=== PATIENT | female | born 1950 | race American Indian/Alaskan Native ===

== ENCOUNTER 2016-08-07 08:21 | Outpatient (CLI) | payer MEDICARE ==
--- NOTE | 2016-08-07 09:56 | Mammography Report ---
BILATERAL DIGITAL SCREENING MAMMOGRAM with CAD: 08/07/16 08:21:00 CLINICAL: Routine screening.The patient has had a left-sided stroke. Difficulty in positioning of the left breast is partially due to a somewhat uncooperative patient. COMPARISON:08/07/15 FINDINGS: The upper left breast is not included on the MLO view. There are scattered areas of fibroglandular density. No mass, architectural distortion or suspicious calcifications. IMPRESSION: No mammographic evidence of malignancy. Limitations of the mammogram for reasons cited above. BI-RADS CATEGORY: 1 - - Negative RECOMMENDATION: Routine mammographic screening in one year. COMMENT: Patient follow-up letters are generated by our [employer] application.
== END 2016-08-07 08:22 | disposition home or self-care (01) ==
LOC: SPVWC 08:21
PROVIDERS: ATTEND Nurse Practitioner Women's Health
DX: Z12.31 Encounter for screening mammogram for malignant neoplasm of breast (principal)
CPT/HCPCS: 77067; G0202

== ENCOUNTER 2017-08-10 08:34 | Outpatient (CLI) | payer MEDICARE ==
--- NOTE | 2017-08-11 10:40 | Mammography Report ---
BILATERAL DIGITAL SCREENING MAMMOGRAM with CAD: 08/10/17 08:34:00 CLINICAL: Routine screening. COMPARISON: 08/07/16 FINDINGS: Suboptimal positioning on the MLO view is related to a left body stroke with limited range of motion in the left upper extremity. There are bilateral scattered areas of fibroglandular density.No mass, architectural distortion or suspicious calcifications. IMPRESSION: No mammographic evidence of malignancy. BI-RADS CATEGORY: 1 -- Negative RECOMMENDATION: Routine mammographic screening in one year. COMMENT: Patient follow-up letters are generated by our [employer] application.
== END 2017-08-10 08:35 | disposition home or self-care (01) ==
LOC: SPVWC 08:34
PROVIDERS: ATTEND Nurse Practitioner Women's Health
DX: Z12.31 Encounter for screening mammogram for malignant neoplasm of breast (principal)
CPT/HCPCS: 77067

== ENCOUNTER 2018-08-12 10:25 | Outpatient (CLI) | payer MEDICARE ==
--- NOTE | 2018-08-12 16:15 | Mammography Report ---
BILATERAL DIGITAL SCREENING MAMMOGRAM with CAD: 08/12/18 10:25:00 CLINICAL: Routine screening. COMPARISON: 08/10/17 FINDINGS: There are bilateral scattered areas of fibroglandular density.No mass, architectural distortion or suspicious calcifications. IMPRESSION: No mammographic evidence of malignancy. BI-RADS CATEGORY: 1 -- Negative RECOMMENDATION: Routine mammographic screening in one year. COMMENT: Patient follow-up letters are generated by our [employer] application.
== END 2018-08-12 10:26 | disposition home or self-care (01) ==
LOC: SPVWC 10:25
PROVIDERS: ATTEND Nurse Practitioner Women's Health
DX: Z12.31 Encounter for screening mammogram for malignant neoplasm of breast (principal); I10 Essential (primary) hypertension; E78.00 Pure hypercholesterolemia, unspecified; E03.9 Hypothyroidism, unspecified; Z90.710 Acquired absence of both cervix and uterus
CPT/HCPCS: 77067

== ENCOUNTER 2018-08-19 18:49 | Emergency (ER) | payer MEDICARE ==
[2018-08-19] MEDS ORDERED: MORPHINE IV ONE (19:32)
[2018-08-19] MEDS ORDERED: NACL 0.9% 1000 ML 1,000 ML IV ONE (19:32)
[2018-08-19] MEDS ORDERED: ZOFRAN IV ONE (19:32)
[2018-08-19 20:23] LABS: Basophils % (Auto) 0.4 % (0.0-1.8); Eosinophils % (Auto) 0.6 % (0.0-4.3); Hematocrit 38.9 % (30.3-42.9); Hemoglobin 13.1 gm/dl (10.1-14.3); Lymphocytes % (Auto) 20.5 % (13.4-35.0); Mean Corpuscular HGB Conc 34 % (30-34); Mean Corpuscular Volume 87 fl (79-97); Monocytes # (Auto) 0.4 K/mm3 (0.0-0.8); Monocytes % (Auto) 8.9 % (0.0-7.3); Platelet Count 196 K/mm3 (140-440); Red Blood Count 4.47 M/mm3 (3.65-5.03); Red Cell Distribution Width 15.5 % (13.2-15.2)
[2018-08-19 20:41] LABS: Calcium 9.6 mg/dL (8.4-10.2)
[2018-08-19] MEDS ORDERED: NACL 0.9% 500 ML 500 ML IV ONE (21:05)
[2018-08-19 21:18] LABS: Bacteria,Urine 1+ /HPF (Negative); Bilirubin,Urine NEG (Negative); Blood,Urine NEG (Negative); Color,Urine Yellow (Yellow); Mucus,Urine FEW /HPF; Urobilinogen,Urine < 2.0 mg/dL (<2.0)
--- NOTE | 2018-08-19 22:42 | Cat Scan Report ---
PROCEDURE: CT HEAD/BRAIN WO CON TECHNIQUE: Spiral CT imaging of the brain was obtained without the use of IV contrast. HISTORY: headache with elevated BP COMPARISONS: Prior CT scan of the brain September 21, 2017 FINDINGS: Brain: There is a parenchymal hemorrhage visualized in the right temporal parietal region. This is be st visualized on image 24 series 2. This hemorrhage measures approximately 3.2 x 1.8 cm. There is mil d surrounding edema and mild localized mass effect. There is no midline shift. Moderate sized old area of encephalomalacia is visualized involving the posterior inferior lateral as pect right frontal lobe. This is unchanged from the prior study. Old lacunar infarcts seen in lateral aspect right and left basal ganglia. There is some decreased density seen in the periventricular white matter without mass effect. This i s fairly symmetric and does not exhibit any mass effect consistent with gliosis probably on the basis of microvascular disease or white matter changes of aging. Ventricles: The ventricles are normal size and are midline. Sulcal pattern and fissures mildly promi nent consistent with mild atrophy.. Bone Windows: No evidence of fracture. Paranasal sinuses: Visualized portions are clear. Mastoid air cells: Visualized portions are clear. IMPRESSION: Parenchymal hemorrhage right temporal parietal region as described above. There is only mild localize d mass effect. Is evidence of mild atrophy and gliosis. Old lacunar infarct seen in right and left basal ganglia. Moderate size old area of encephalomalacia posterior inferior lateral aspect right frontal lobe. Critical value: A wet reading was given to Dr. Overton on 08/19/2018 at 10:40 PM Eastern standard time. This document is electronically signed by Azeem Griffith MD., Aug 19 2018 10:40:32 PM ET
--- NOTE | 2018-08-19 22:53 | Emergency Department Report ---
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 Patient's also has has a history of hypertension and diabetes. Patient states that last night at approximately 2 AM she had a hypoglycemic episode. Patient states she felt some mild confusion and diaphoresis. Patient had taken slightly more insulin than she should have and did not eat well. Patient blood sugar dropped into the 50s. She was able to eat and drink and brought her sugar back up into the 100s. Patient states this morning she developed some headache that was global. She denies any nausea vomiting and light sensitivity. Patient states that when standing and when straining have a bowel movement her head with her worse. She does not have a history of headaches. Patient states the headache as a throbbing sensation is 6 out of 10 in severity at its worst. Allergies/Adverse Reactions: Allergies atorvastatin calcium [From Lipitor] Allergy (Verified 04/17/14 20:45) Unknown Home Medications: Ambulatory Orders Insulin Detemir [Levemir Flexpen] 15 unit SQ QHS 08/07/13 Baclofen 10 mg PO TID 01/15/14 Insulin Aspart Protam & Aspart [NovoLOG Mix 70-30 Flexpen] 15 units SUB-Q QHS 01/15/14 Olmesartan (Nf) [Benicar] 40 mg PO DAILY 01/15/14 Gabapentin [Neurontin] 100 mg PO Q8HR 05/25/17 Hydralazine HCl 100 mg PO BID 05/25/17 Venlafaxine HCl [Venlafaxine HCl ER] 150 mg PO DAILY 05/25/17 Aspirin [Lo-Dose Aspirin EC] 81 mg PO DAILY #30 tablet. 06/02/17 Clopidogrel [Plavix] 75 mg PO QDAY #60 tablet 06/02/17 Levothyroxine [Synthroid] 0.05 mg PO DAILY #30 06/02/17 Loratadine [Claritin] 10 mg PO DAILY #30 06/02/17 Calcium Carbonate/Vitamin D3 [Calcium 600-Vit D3 800 Caplet] 2 tab PO DAILY 08/19/18 Carvedilol [Coreg] 25 mg PO BID 08/19/[address] (Nf) [Dexilant (Nf)] 60 mg PO QAM 08/19/18 Simvastatin [Zocor] 40 mg PO DAILY 08/19/18 amLODIPine [Norvasc] 10 mg PO DAILY 08/19/18 levETIRAcetam [Keppra TAB] 2,000 mg PO BID 08/19/18 ED Review of Systems ROS: Stated complaint: HEADACHE Other details as noted in HPI Comment: All other systems reviewed and negative ED Past Medical Hx - Past Medical History Previous Medical History?: Yes Hx Hypertension: Yes Hx CVA: Yes (L sided hemiparesis) Hx Heart Attack/AMI: No Hx Congestive Heart Failure: No Hx Diabetes: Yes Hx Deep Vein Thrombosis: No Hx Pulmonary Embolism: No Hx Liver Disease: No Hx Renal Disease: No Hx Sickle Cell Disease: No Hx Arthritis: Yes Hx Seizures: Yes (Keppra) Hx Kidney Stones: Yes Hx Asthma: No Hx COPD: No Hx Tuberculosis: No Hx Dementia: No Hx HIV: No Additional medical history: High cholesterol - Surgical History Hx Coronary Stent: No Hx Open Heart Surgery: No Hx Pacemaker: No Hx Internal Defibrillator: No Hx Cholecystectomy: No Hx Appendectomy: No Hx Breast Surgery: No Additional Surgical History: "neck surgery, L rotator cuff and Hysterectomy - Social History Smoking Status: Never Smoker Substance Use Type: None - Medications Home Medications: Home Medications Medication Instructions Recorded Confirmed Last Taken Type Insulin Detemir [Levemir Flexpen] 15 unit SQ QHS 08/07/13 08/19/18 06/15/15 History Baclofen 10 mg PO TID 01/15/14 08/19/18 06/16/15 History Insulin Aspart Protam & Aspart 15 units SUB-Q QHS 01/15/14 08/19/18 06/15/15 History [NovoLOG Mix 70-30 Flexpen] Olmesartan (Nf) [Benicar] 40 mg PO DAILY 01/15/14 08/19/18 06/16/15 History Gabapentin [Neurontin] 100 mg PO Q8HR 05/25/17 08/19/18 Unknown History Hydralazine HCl 100 mg PO BID 05/25/17 08/19/18 Unknown History Venlafaxine HCl [Venlafaxine HCl 150 mg PO DAILY 05/25/17 08/19/18 Unknown History ER] Aspirin [Lo-Dose Aspirin EC] 81 mg PO DAILY #30 tablet. 06/02/17 08/19/18 Unknown Rx Clopidogrel [Plavix] 75 mg PO QDAY #60 tablet 06/02/17 08/19/18 Unknown Rx Levothyroxine [Synthroid] 0.05 mg PO DAILY #30 06/02/17 08/19/18 05/23/17 07:00 Rx Loratadine [Claritin] 10 mg PO DAILY #30 06/02/17 08/19/18 06/16/15 Rx Calcium Carbonate/Vitamin D3 2 tab PO DAILY 08/19/18 08/19/18 Unknown History [Calcium 600-Vit D3 800 Caplet] Carvedilol [Coreg] 25 mg PO BID 08/19/18 08/19/18 Unknown History Dexlansoprazole ([place]) [Dexilant 60 mg PO QAM 08/19/18 08/19/18 Unknown History ([place])] Simvastatin [Zocor] 40 mg PO DAILY 08/19/18 08/19/18 Unknown History amLODIPine [Norvasc] 10 mg PO DAILY 08/19/18 08/19/18 Unknown History levETIRAcetam [Keppra TAB] 2,000 mg PO BID 08/19/18 08/19/18 Unknown History ED Physical Exam - General Limitations: No Limitations General appearance: alert, in no apparent distress - Head Head exam: Present: atraumatic, normocephalic - Eye Eye exam: Present: normal appearance - ENT ENT exam: Present: mucous membranes moist - Neck Neck exam: Present: normal inspection - Respiratory Respiratory exam: Present: normal lung sounds bilaterally. Absent: respiratory distress, wheezes, rales, rhonchi - Cardiovascular Cardiovascular Exam: Present: regular rate, normal rhythm. Absent: systolic murmur, diastolic murmur, rubs, gallop - GI/Abdominal GI/Abdominal exam: Present: soft, normal bowel sounds. Absent: distended, tenderness, guarding, rebound - Extremities Exam Extremities exam: Present: normal inspection - Back Exam Back exam: Present: normal inspection - Neurological Exam Neurological exam: Present: alert, oriented X3, CN II-XII intact, motor sensory deficit (patient with chronic left upper extremity and left lower extremity weakness.). Absent: altered - Psychiatric Psychiatric exam: Present: normal affect, normal mood - Skin Skin exam: Present: warm, dry, intact, normal color. Absent: rash ED Course Vital Signs 08/19/18 08/19/18 08/19/18 19:25 20:00 21:00 Temperature 98.2 F Pulse Rate 85 87 93 H Respiratory 14 20 26 H Rate Blood Pressure 165/79 176/80 173/86 Blood Pressure 165/79 [Right] O2 Sat by Pulse 95 93 94 Oximetry 08/19/18 08/19/18 08/19/18 22:08 22:30 23:04 Temperature 98.3 F Pulse Rate 91 H 88 88 Respiratory 19 16 24 Rate Blood Pressure 173/86 147/86 Blood Pressure 164/89 [Right] O2 Sat by Pulse 90 89 94 Oximetry ED Medical Decision Making - Lab Data Result diagrams: 08/19/18 20:14 08/19/18 20:14 Lab Results 08/19/18 08/19/18 08/19/18 Range/Units 20:14 20:14 20:53 WBC 4.9 (4.5-11.0) K/mm3 RBC 4.47 (3.65-5.03) M/mm3 Hgb 13.1 (10.1-14.3) gm/dl Hct 38.9 (30.3-42.9) % MCV 87 (79-97) fl MCH 29 (28-32) pg MCHC 34 (30-34) % RDW 15.5 H (13.2-15.2) % Plt Count 196 (140-440) K/mm3 Lymph % (Auto) 20.5 (13.4-35.0) % [place] % (Auto) 8.9 H (0.0-7.3) % Eos % (Auto) 0.6 (0.0-4.3) % Baso % (Auto) 0.4 (0.0-1.8) % Lymph # 1.0 L (1.2-5.4) K/mm3 [place] # 0.4 (0.0-0.8) K/mm3 Eos # 0.0 (0.0-0.4) K/mm3 Baso # 0.0 (0.0-0.1) K/mm3 Seg Neutrophils % 69.6 (40.0-70.0) % Seg Neutrophils # 3.4 (1.8-7.7) K/mm3 Sodium 140 (137-145) mmol/L Potassium 4.2 (3.6-5.0) mmol/L Chloride 99.6 (98-107) mmol/L Carbon Dioxide 29 (22-30) mmol/L Anion Gap 16 mmol/L BUN 18 H (7-17) mg/dL Creatinine 1.1 (0.7-1.2) mg/dL Estimated GFR 59 ml/min BUN/Creatinine Ratio 16 % Glucose 261 H (65-100) mg/dL Calcium 9.6 (8.4-10.2) mg/dL Urine Color Yellow (Yellow) Urine Turbidity Clear (Clear) Urine pH 6.0 (5.0-7.0) Ur Specific [place] 1.014 (1.003-1.030) Urine Protein 100 mg/dl (Negative) mg/dL Urine Glucose (UA) 50 (Negative) mg/dL Urine Ketones Neg (Negative) mg/dL Urine Blood Neg (Negative) Urine Nitrite Neg (Negative) Urine Bilirubin Neg (Negative) Urine Urobilinogen < 2.0 (<2.0) mg/dL Ur Leukocyte Esterase Neg (Negative) Urine WBC (Auto) 1.0 (0.0-6.0) /HPF Urine RBC (Auto) 3.0 (0.0-6.0) /HPF U Epithel Cells (Auto) 1.0 (0-13.0) /HPF Urine Bacteria (Auto) 1+ (Negative) /HPF Urine Mucus Few /HPF - EKG Data -: EKG Interpreted by Nc - EKG Data 08/19/18 23:12 EKG shows sinus rhythm with a rate of 86. [place] is rightward intervals are normal there is no ST segment elevations or depressions present. - Radiology Data [facility] [address] [place] [address] Cat Scan Report Signed Patient: VINCENT GARRIDO MR# : [id number] : 1950 Acct:[id number] Age/Sex: 68 / F ADM Date: 08/19/18 Loc: ED Attending Dr: Ordering Physician: CHRISTIANO OVERTON MD Date of Service: 08/19/18 Procedure(s): CT head/brain wo con Accession Number(s): [id number] cc: CHRISTIANO OVERTON MD PROCEDURE: CT HEAD/BRAIN WO CON TECHNIQUE: Spiral CT imaging of the brain was obtained without the use of IV contrast. HISTORY: headache with elevated BP COMPARISONS: Prior CT scan of the brain September 21, 2017 FINDINGS: Brain: There is a parenchymal hemorrhage visualized in the right temporal parietal region. This is best visualized on image 24 series 2. This hemorrhage measures approximately 3.2 x 1.8 cm. There is mild surrounding edema and mild localized mass effect. There is no midline shift. Moderate sized old area of encephalomalacia is visualized involving the posterior inferior lateral aspect right frontal lobe. This is unchanged from the prior study. Old lacunar infarcts seen in lateral aspect right and left basal ganglia. There is some decreased density seen in the periventricular white matter without mass effect. This is fairly symmetric and does not exhibit any mass effect consistent with gliosis probably on the basis of microvascular disease or white matter changes of aging. Ventricles: The ventricles are normal size and are midline. Sulcal pattern and fissures mildly prominent consistent with mild atrophy.. Bone Windows: No evidence of fracture. Paranasal sinuses: Visualized portions are clear. Mastoid air cells: Visualized portions are clear. IMPRESSION: Parenchymal hemorrhage right temporal parietal region as described above. There is only mild localized mass effect. Is evidence of mild atrophy and gliosis. Old lacunar infarct seen in right and left basal ganglia. Moderate size old area of encephalomalacia posterior inferior lateral aspect right frontal lobe. Critical value: A wet reading was given to Dr. Overton on 08/19/2018 at 10:40 PM Eastern standard time. This document is electronically signed by Azeem Ram MD., Aug 19 2018 10:40:32 PM ET Transcribed By: DFN Dictated By: AZEEM RAM MD Electronically Authenticated By: AZEEM RAM MD Signed Date/Time: 08/19/182241 DD/ 13 TD/TT: 08/19/182213 - Medical Decision Making Initially the patient states headache and some mild lightheadedness was worse when she would stand. Our hopes was that the patient has some mild dehydration causing her symptoms. Patient's blood pressure was 160s on arrival and after being treated for headache the blood pressure dropped into the 140s systolic. Unfortunately the patient CT of the head shows the patient has a right temporoparietal hemorrhagic lesion. There is no midline shift. Did consult [facility] for transfer to the neurosurgery care. Spoke with Dr. Coto who is the accepting physician. Patient transferred in stable condition. Critical Care Time: Yes (30) Critical care attestation.: If time is entered above; I have spent that time in minutes in the direct care of this critically ill patient, excluding procedure time. ED Disposition Clinical Impression: Hemorrhagic cerebrovascular accident (CVA) Disposition: DC/TX-70 ANOTHER TYPE HLTHCARE Is pt being admited?: No Does the pt Need Aspirin: No Condition: Stable Referrals: MARIBELL ROGERS MD [Primary Care Provider] - 3-5 Days Exam - Constitutional Vitals: Temp Pulse Resp BP Pulse Ox 98.3 F 88 24 164/89 94 08/19/18 23:04 08/19/18 23:04 08/19/18 23:04 08/19/18 23:04 08/19/18 23:04 - Level of Consciousness 1a. Level of Consciousness: alert/keenly responsive - LOC Questions 1b. LOC Questions: answers both correctly - LOC Command 1c. LOC Commands: performs tasks correctly - Best Gaze 2. Best Gaze: normal - Visual 3. Visual: no visual loss - Facial Palsy 4. Facial Palsy: normal symmetrical movement - Motor Arm 5a. Motor Arm Left: some gravity effort 5b. Motor Arm Right: no drift - Motor Leg 6a. Motor Leg Left: some gravity effort 6b. Motor Leg Right: no drift - Limb Ataxia 7. Limb Ataxia: absent - Sensory 8. Sensory: normal - Best Language 9. Best Language: no aphasia - Dysarthria 10. Dysarthria: normal - Extinction and Inattention 11. Extinction/Inattention: no abnormality - Scoring Total Score: 4 Stroke Severity: Minor Stroke
--- NOTE | 2018-08-19 23:51 | XRay Report ---
PROCEDURE: XR ABDOMEN 1V AP TECHNIQUE: Supine abdomen HISTORY: constipation COMPARISONS: FINDINGS: On the view obtained obtain no evidence for colonic or small bowel distention. No sign of free air on supine view. No calcifications observed. IMPRESSION: Nonobstructive bowel gas pattern This document is electronically signed by Dustin Luciano MD., Aug 19 2018 11:49:12 PM ET
[2018-08-20 00:14] VITALS: BP 154/76
== END 2018-08-20 00:50 | disposition other institution (70) ==
LOC: ED 18:49
DX: I63.9 Cerebral infarction, unspecified (principal); I10 Essential (primary) hypertension; E11.9 Type 2 diabetes mellitus without complications; M19.90 Unspecified osteoarthritis, unspecified site; E78.00 Pure hypercholesterolemia, unspecified
CPT/HCPCS: 36415; 70450; 74018; 80048; 81001; 85025; 93005; 93010; 96361; 96374; 96375; 99291; J2270; J2405; J7030; J7040

== ENCOUNTER 2018-09-12 11:35 | Emergency (ER) | payer MEDICARE ==
[2018-09-12 12:19] LABS: Basophils % (Auto) 0.4 % (0.0-1.8); Eosinophils % (Auto) 0.5 % (0.0-4.3); Hematocrit 39.1 % (30.3-42.9); Hemoglobin 13.1 gm/dl (10.1-14.3); Lymphocytes # (Auto) 0.7 K/mm3 (1.2-5.4); Lymphocytes % (Auto) 18.4 % (13.4-35.0); Mean Corpuscular HGB Conc 34 % (30-34); Mean Corpuscular Volume 88 fl (79-97); Monocytes # (Auto) 0.3 K/mm3 (0.0-0.8); Monocytes % (Auto) 7.6 % (0.0-7.3); Platelet Count 185 K/mm3 (140-440); Red Blood Count 4.43 M/mm3 (3.65-5.03); Red Cell Distribution Width 15.3 % (13.2-15.2)
--- NOTE | 2018-09-12 12:22 | Emergency Department Report ---
ED Neuro Deficit HPI - General Chief Complaint: Neuro Symptoms/Deficit Stated Complaint: NEURO ISSUES Time Seen by Provider: 09/12/18 11:45 Source: patient, family, EMS Mode of arrival: Stretcher Limitations: No Limitations - History of Present Illness Initial Comments: Mrs. Vaughn is a very pleasant 68 yo female with history of hemorrhagic CVA, ischemic CVA, insulin-dependent diabetes, seizure disorder, hypothyroidism, GERD, osteoarthritis, dyslipidemia who presents wtih elevated blood pressure and headache this morning. Pertinent hx: major CVA July 2013 which led to residual persistent deficits including left sided partial paralysis, dysarthia. She had recent stroke May 2017. Most recently earlier this month, she had a small hemorrhagic stroke at the right temporal parietal region. Daughter explains that her residual deficits were only slightly were at this recent neurological insult. She was then transferred to [facility]. Discharged August 23. Her neurologist has been increasing dose and frequency of hydralazine for goal SBP 130 mm HG. This morning Mrs. Neli Sutton woke up around 3:00 2. Depression. She felt dizzy. She was able to ambulate with her [email or web address] Laci without assistance. Daughter checked blood pressure at that time. Systolic blood pressure was 1 56 mmHg. This morning she awakened, she noticed right eye right temporal headache. Mild. The daughter and patient were both concerned because this was the presentation of recent hemorrhagic stroke. Headache is not resolved. She did take her morning medications. She denies any pain at this time. She denies any new weakness or sensory abnormalities. -: Gradual, This morning Place: home Severity: mild Improves With: time Context: gradual onset Associated Symptoms: headaches Treatments Prior to Arrival: other medication (blood pressure medication) - Related Data Home Medications: Home Medications Medication Instructions Recorded Confirmed Last Taken Insulin Detemir [Levemir Flexpen] 15 unit SQ QHS 08/07/13 08/19/18 06/15/15 Baclofen 10 mg PO TID 01/15/14 08/19/18 06/16/15 Insulin Aspart Protam & Aspart 15 units SUB-Q QHS 01/15/14 08/19/18 06/15/15 [NovoLOG Mix 70-30 Flexpen] Olmesartan (Nf) [Benicar] 40 mg PO DAILY 01/15/14 08/19/18 06/16/15 Gabapentin [Neurontin] 100 mg PO Q8HR 05/25/17 08/19/18 Unknown Hydralazine HCl 100 mg PO BID 05/25/17 08/19/18 Unknown Venlafaxine HCl [Venlafaxine HCl 150 mg PO DAILY 05/25/17 08/19/18 Unknown ER] Calcium Carbonate/Vitamin D3 2 tab PO DAILY 08/19/18 08/19/18 Unknown [Calcium 600-Vit D3 800 Caplet] Carvedilol [Coreg] 25 mg PO BID 08/19/18 08/19/18 Unknown Dexlansoprazole (Nf) [Dexilant 60 mg PO QAM 08/19/18 08/19/18 Unknown (Nf)] Simvastatin [Zocor] 40 mg PO DAILY 08/19/18 08/19/18 Unknown amLODIPine [Norvasc] 10 mg PO DAILY 08/19/18 08/19/18 Unknown levETIRAcetam [Keppra TAB] 2,000 mg PO BID 08/19/18 08/19/18 Unknown Previous Rx's Medication Instructions Recorded Last Taken Type Aspirin [Lo-Dose Aspirin EC] 81 mg PO DAILY #30 tablet. 06/02/17 Unknown Rx Clopidogrel [Plavix] 75 mg PO QDAY #60 tablet 06/02/17 Unknown Rx Levothyroxine [Synthroid] 0.05 mg PO DAILY #30 06/02/17 05/23/17 07:00 Rx Loratadine [Claritin] 10 mg PO DAILY #30 06/02/17 06/16/15 Rx Allergies/Adverse Reactions: Allergies Allergy/AdvReac Type Severity Reaction Status Date / Time atorvastatin calcium Allergy Unknown Verified 04/17/14 20:45 [From Lipitor] ED Review of Systems ROS: Stated complaint: NEURO ISSUES Other details as noted in HPI Comment: All other systems reviewed and negative Constitutional: denies: fever, malaise ENT: denies: ear pain Respiratory: denies: cough ED Past Medical Hx - Past Medical History Previous Medical History?: Yes Hx Hypertension: Yes Hx CVA: Yes (L sided hemiparesis) Hx Heart Attack/AMI: No Hx Congestive Heart Failure: No Hx Diabetes: Yes Hx Deep Vein Thrombosis: No Hx Pulmonary Embolism: No Hx Liver Disease: No Hx Renal Disease: No Hx Sickle Cell Disease: No Hx Arthritis: Yes Hx Seizures: Yes (Keppra) Hx Kidney Stones: Yes Hx Asthma: No Hx COPD: No Hx Tuberculosis: No Hx Dementia: No Hx HIV: No Additional medical history: High cholesterol - Surgical History Hx Coronary Stent: No Hx Open Heart Surgery: No Hx Pacemaker: No Hx Internal Defibrillator: No Hx Cholecystectomy: No Hx Appendectomy: No Hx Breast Surgery: No Additional Surgical History: "neck surgery, L rotator cuff and Hysterectomy - Social History Smoking Status: Never Smoker Substance Use Type: None - Medications Home Medications: Home Medications Medication Instructions Recorded Confirmed Last Taken Type Insulin Detemir [Levemir Flexpen] 15 unit SQ QHS 08/07/13 08/19/18 06/15/15 History Baclofen 10 mg PO TID 01/15/14 08/19/18 06/16/15 History Insulin Aspart Protam & Aspart 15 units SUB-Q QHS 01/15/14 08/19/18 06/15/15 History [NovoLOG Mix 70-30 Flexpen] Olmesartan (Nf) [Benicar] 40 mg PO DAILY 01/15/14 08/19/18 06/16/15 History Gabapentin [Neurontin] 100 mg PO Q8HR 05/25/17 08/19/18 Unknown History Hydralazine HCl 100 mg PO BID 05/25/17 08/19/18 Unknown History Venlafaxine HCl [Venlafaxine HCl 150 mg PO DAILY 05/25/17 08/19/18 Unknown History ER] Aspirin [Lo-Dose Aspirin EC] 81 mg PO DAILY #30 tablet. 06/02/17 08/19/18 Unknown Rx Clopidogrel [Plavix] 75 mg PO QDAY #60 tablet 06/02/17 08/19/18 Unknown Rx Levothyroxine [Synthroid] 0.05 mg PO DAILY #30 06/02/17 08/19/18 05/23/17 07:00 Rx Loratadine [Claritin] 10 mg PO DAILY #30 06/02/17 08/19/18 06/16/15 Rx Calcium Carbonate/Vitamin D3 2 tab PO DAILY 08/19/18 08/19/18 Unknown History [Calcium 600-Vit D3 800 Caplet] Carvedilol [Coreg] 25 mg PO BID 08/19/18 08/19/18 Unknown History Dexlansoprazole (Sylvester) [Dexilant 60 mg PO QAM 08/19/18 08/19/18 Unknown History (Nf)] Simvastatin [Zocor] 40 mg PO DAILY 08/19/18 08/19/18 Unknown History amLODIPine [Norvasc] 10 mg PO DAILY 08/19/18 08/19/18 Unknown History levETIRAcetam [Keppra TAB] 2,000 mg PO BID 08/19/18 08/19/18 Unknown History ED Neuro Physical Exam - General Limitations: No Limitations General appearance: alert, in no apparent distress, other (left facial droop) Suspected Stroke: No - Head Head exam: Present: atraumatic, normocephalic - Eye Eye exam: Present: normal appearance - ENT ENT exam: Present: mucous membranes moist - Neck Neck exam: Present: normal inspection, full ROM - Respiratory Respiratory exam: Present: normal lung sounds bilaterally. Absent: respiratory distress, wheezes, rales, rhonchi - Cardiovascular Cardiovascular Exam: Present: regular rate, normal rhythm, normal heart sounds. Absent: systolic murmur, diastolic murmur, rubs, gallop - GI/Abdominal GI/Abdominal exam: Present: soft, normal bowel sounds. Absent: distended, tenderness, guarding, rebound - Extremities Exam Extremities exam: Present: normal inspection - Back Exam Back exam: Present: normal inspection - Neurological Exam Neurological exam: Present: alert, oriented X3 - NIHSS Assessment Interval: Baseline 1a. Level of Consciousness: alert/keenly responsive 1b. LOC Questions: answers both correctly 1c. LOC Commands: performs tasks correctly 2. Best Gaze: normal 3. Visual: no visual loss 4. Facial Palsy: unilateral complete paralysis 5b. Motor Arm Right: no drift 5a. Motor Arm Left: some gravity effort 6a. Motor Leg Left: some gravity effort 6b. Motor Leg Right: no drift 7. Limb Ataxia: absent 8. Sensory: mild/moderate sensory loss 9. Best Language: mild/moderate aphasia 10. Dysarthria: mild/moderate dysarthria 11. Extinction/Inattention: no abnormality Total Score: 10 Stroke Severity: Moderate Stroke - Psychiatric Psychiatric exam: Present: normal affect, normal mood - Skin Skin exam: Present: warm, dry, intact, normal color. Absent: rash ED Course Vital Signs 09/12/18 11:49 Pulse Rate 79 Respiratory 17 Rate O2 Sat by Pulse 94 Oximetry - Lab Data Result diagrams: 09/12/18 12:06 09/12/18 12:06 Lab Results 09/12/18 09/12/18 09/12/18 Range/Units 12:06 12:06 12:06 WBC 4.1 L (4.5-11.0) K/mm3 RBC 4.43 (3.65-5.03) M/mm3 Hgb 13.1 (10.1-14.3) gm/dl Hct 39.1 (30.3-42.9) % MCV 88 (79-97) fl MCH 30 (28-32) pg MCHC 34 (30-34) % RDW 15.3 H (13.2-15.2) % Plt Count 185 (140-440) K/mm3 Lymph % (Auto) 18.4 (13.4-35.0) % [place] % (Auto) 7.6 H (0.0-7.3) % Eos % (Auto) 0.5 (0.0-4.3) % Baso % (Auto) 0.4 (0.0-1.8) % Lymph # 0.7 L (1.2-5.4) K/mm3 [place] # 0.3 (0.0-0.8) K/mm3 Eos # 0.0 (0.0-0.4) K/mm3 Baso # 0.0 (0.0-0.1) K/mm3 Seg Neutrophils % 73.1 H (40.0-70.0) % Seg Neutrophils # 3.0 (1.8-7.7) K/mm3 PT 13.6 (12.2-14.9) Sec. INR 0.98 (0.87-1.13) APTT 27.7 (24.2-36.6) Sec. Thrombin Time (15.1-19.6) Sec. Sodium 140 (137-145) mmol/L Potassium 4.3 (3.6-5.0) mmol/L Chloride 101.7 (98-107) mmol/L Carbon Dioxide 28 (22-30) mmol/L Anion Gap 15 mmol/L BUN 21 H (7-17) mg/dL Creatinine 1.2 (0.7-1.2) mg/dL Estimated GFR 54 ml/min BUN/Creatinine Ratio 18 % Glucose 299 H (65-100) mg/dL Calcium 9.0 (8.4-10.2) mg/dL Troponin T < 0.010 (0.00-0.029) ng/mL 09/12/18 Range/Units 12:06 WBC (4.5-11.0) K/mm3 RBC (3.65-5.03) M/mm3 Hgb (10.1-14.3) gm/dl Hct (30.3-42.9) % MCV (79-97) fl MCH (28-32) pg MCHC (30-34) % RDW (13.2-15.2) % Plt Count (140-440) K/mm3 Lymph % (Auto) (13.4-35.0) % [place] % (Auto) (0.0-7.3) % Eos % (Auto) (0.0-4.3) % Baso % (Auto) (0.0-1.8) % Lymph # (1.2-5.4) K/mm3 [place] # (0.0-0.8) K/mm3 Eos # (0.0-0.4) K/mm3 Baso # (0.0-0.1) K/mm3 Seg Neutrophils % (40.0-70.0) % Seg Neutrophils # (1.8-7.7) K/mm3 PT (12.2-14.9) Sec. INR (0.87-1.13) APTT (24.2-36.6) Sec. Thrombin Time 16.4 (15.1-19.6) Sec. Sodium (137-145) mmol/L Potassium (3.6-5.0) mmol/L Chloride (98-107) mmol/L Carbon Dioxide (22-30) mmol/L Anion Gap mmol/L BUN (7-17) mg/dL Creatinine (0.7-1.2) mg/dL Estimated GFR ml/min BUN/Creatinine Ratio % Glucose (65-100) mg/dL Calcium (8.4-10.2) mg/dL Troponin T (0.00-0.029) ng/mL 09/12/18 13:08 EKG obtained 1200 Normal sinus rhythm rate 75 beats a minute biphasic T waves in leads 1 and aVL n ormal axis normal intervals nonspecific T wave pattern no significant ST elevation - Radiology Data Radiology results: report reviewed CT head: resolving intraparenchymal hemorrhage - Medical Decision Making Mrs. Vaughn presents via EMS for headache. Headache is now resolved. Daughter's concern for elevated blood pressure systolic 156 this morning. I do not suspect new acute CVA at this time. She and daugther agree that she does not have any new symptoms. Discharged home with shortness to call 911 for any new symptoms. Diagnosis: Hypertensive urgency, headache, hyperglycemia Critical care attestation.: If time is entered above; I have spent that time in minutes in the direct care of this critically ill patient, excluding procedure time. ED Disposition Clinical Impression: Hypertensive urgency, Headache, Hyperglycemia Disposition: DC-01 TO HOME OR SELFCARE Is pt being admited?: No Does the pt Need Aspirin: No Condition: Stable Additional Instructions: Please call 911 for any concerns or new symptoms. Referrals: PRIMARY CARE, [Primary Care Provider] - as needed
[2018-09-12 12:28] LABS: INR 0.98 (0.87-1.13)
[2018-09-12 12:35] LABS: Partial Thromboplastin Time 27.7 Sec. (24.2-36.6)
[2018-09-12 12:37] LABS: BUN/Creatinine Ratio 18; Blood Urea Nitrogen 21 mg/dL (7-17); Hemolysis Index 1
--- NOTE | 2018-09-12 13:06 | Cat Scan Report ---
PROCEDURE: CT HEAD/BRAIN WO CON TECHNIQUE: A noncontrast CT of the head was performed. HISTORY: neuro deficits <6hrs or sx present upon awakening COMPARISON: 08/19/2018 FINDINGS: Previously seen intraparenchymal hemorrhage in right temporal lobe is resolving. There is minimal foc al edema but no mass effect. There is no new intracranial hemorrhage seen. There is no mass effect or midline shift. Ventricular size is appropriate for brain volume. There is no abnormal extra-axial fluid collections. There is an old right parietal infarct. There is no skull fracture seen. The visualized paranasal sinuses are clear. IMPRESSION: Resolving intraparenchymal hemorrhage. This document is electronically signed by Nilda Greenberg MD., Sep 12 2018 01:04:08 PM ET
[2018-09-12 14:26] VITALS: BP 147/80
== END 2018-09-12 13:39 | disposition home or self-care (01) ==
LOC: ED 11:35
DX: I16.0 Hypertensive urgency (principal); E11.65 Type 2 diabetes mellitus with hyperglycemia; G40.909 Epilepsy, unspecified, not intractable, without status epilepticus; I10 Essential (primary) hypertension; E03.9 Hypothyroidism, unspecified; K21.9 Gastro-esophageal reflux disease without esophagitis; E78.5 Hyperlipidemia, unspecified; M19.90 Unspecified osteoarthritis, unspecified site; Z79.4 Long term (current) use of insulin; Z79.82 Long term (current) use of aspirin; Z79.02 Long term (current) use of antithrombotics/antiplatelets; Z88.8 Allergy status to other drugs, medicaments and biological substances; Z90.710 Acquired absence of both cervix and uterus
CPT/HCPCS: 36415; 70450; 80048; 84484; 85025; 85610; 85670; 85730; 93005; 93010; 99285

== ENCOUNTER 2019-08-16 08:08 | Outpatient (CLI) | payer MEDICARE ==
--- NOTE | 2019-08-16 10:42 | Mammography Report ---
DIGITAL SCREENING MAMMOGRAM WITH CAD, 08/16/2019 INDICATION: Routine screening mammography. TECHNIQUE: Digital bilateral 2D mammography was obtained in the craniocaudal and mediolateral obliq ue projections. This examination was interpreted with the benefit of Computer-Aided Detection analysi s. COMPARISON: Prior mammogram 08/07/2015 and 07/01/2011 FINDINGS: Breast Density: There are scattered areas of fibroglandular density. Patient was difficult to position secondary to history of strokes and inability to stand, best possib le images were obtained. There is no evidence of dominant mass, suspicious calcifications or architec tural distortion in either breast. There is a stable intramammary lymph node seen in the upper outer quadrant of the right breast, and stable benign-appearing calcifications seen in both breasts. There has been no significant change compared with the prior examinations. IMPRESSION: Follow up recommendation: Routine yearly BI-RADS Category 2: Benign. A "normal" or negative report should not discourage follow up or biopsy of a clinically significant f inding. A written summary of these findings will be mailed to the patient. The patient will be entered into a mammography reporting system which will generate a reminder letter for the patient's next appointmen t at the appropriate interval. The [employer] recommends yearly mammograms starting at age 40 and continuing as l nataliia as a woman is in good health. Breast MRI is recommended for women with an approximate 20-25% or greater lifetime risk of breast cancer, including women with a strong family history of breast or ova javier cancer or who have been treated for Hodgkin's disease. Signer Name: Wendy Dailey MD Signed: 08/16/2019 10:37 AM Workstation Name: [id number]
== END 2019-08-16 08:09 | disposition home or self-care (01) ==
LOC: SPVWC 08:08
PROVIDERS: ATTEND Internal Medicine
DX: Z12.31 Encounter for screening mammogram for malignant neoplasm of breast (principal); R59.0 Localized enlarged lymph nodes
CPT/HCPCS: 77067

== ENCOUNTER 2021-01-16 11:41 | Outpatient (CLI) | payer MEDICARE ==
--- NOTE | 2021-01-16 15:20 | Mammography Report ---
DIGITAL SCREENING MAMMOGRAM WITH CAD, 01/16/2021 CLINICAL INFORMATION / INDICATION: Routine screening mammography. SCREENING MAMMO Z12.31 TECHNIQUE: Digital bilateral 2D mammography was obtained in the craniocaudal and mediolateral obliqu e projections. This examination was interpreted with the benefit of Computer-Aided Detection analysis . COMPARISON: 07/08/2013 through 08/16/2019. FINDINGS: Breast Density: There are scattered areas of fibroglandular density. Suboptimal study due to the patient's inability to cooperate with positioning on the left. No dominan t mass, suspicious calcifications, or architectural distortion in either breast. There are minimal benign breast arterial calcifications bilaterally IMPRESSION: No mammographic evidence of malignancy. Follow up recommendation: Routine yearly BI-RADS Category 2: Benign. A "normal" or negative report should not discourage follow up or biopsy of a clinically significant f inding. A written summary of these findings will be mailed to the patient. The patient will be entered into a mammography reporting system which will generate a reminder letter for the patient's next appointmen t at the appropriate interval. The [employer] recommends yearly mammograms starting at age 40 and continuing as l nataliia as a woman is in good health. Breast MRI is recommended for women with an approximate 20-25% or greater lifetime risk of breast cancer, including women with a strong family history of breast or ova javier cancer or who have been treated for Hodgkin's disease. Signer Name: Lino Hernández MD Signed: 01/16/2021 3:16 PM Workstation Name: [id number]
== END 2021-01-16 11:42 | disposition home or self-care (01) ==
LOC: SPVWC 11:41
PROVIDERS: ATTEND Internal Medicine
DX: Z12.31 Encounter for screening mammogram for malignant neoplasm of breast (principal)
CPT/HCPCS: 77067